=== PATIENT | female | born 1975 | race Caucasian/White ===

== ENCOUNTER 2018-05-22 04:00 | Outpatient (CLI) | payer OTHER, SELFPAY ==
[2018-05-22 07:46] LABS: Bilirubin Negative (Negative); Blood Moderate (Negative); Clarity Clear; Glucose Negative (Negative); Ketones Negative (Negative); Leukocyte Esterase Negative (Negative); Nitrite Negative (Negative); Specific Gravity >= 1.030 (1.005-1.025); Urobilinogen 0.2 EU/dL (Up TO 0.2); pH 5.5 (5-8)
[2018-05-22 08:22] LABS: Bacteria Many HPF (Negative); Crystals Negative HPF (Negative); Epithelial Cells Moderate HPF (Negative); Mucus Heavy (Negative); Other Cells Moderate Renal (Negative); WBC >50 HPF (0-5)
[2018-05-22 08:23] LABS: C & S Indicated? C&S Done As Ordered; Casts Negative LPF (Negative)
== END 2018-05-22 04:20 ==
PROVIDERS: PCP Family Medicine; Visit Provider Family Medicine
DX: R30.0 Dysuria (principal)
CPT/HCPCS: 87077; 81003; 81015; 87086; 87186

== ENCOUNTER 2018-07-09 18:34 | Outpatient (REF) | payer OTHER, SELFPAY ==
--- NOTE | 2018-07-09 19:00 | DI.MAMMO_ITS ---
SYMPTOMS/DIAGNOSIS: SCREENING, Z12.31 MAMMOGRAM: Mammograms were interpreted according to the usual protocol including computer analysis with CAD system, tomosynthesis and C view imaging. Comparison is made with exams from 2011 through 2017. The breasts are composed of heterogeneously dense fibroglandular tissue, breast density Category C. No suspicious masses or suspicious microcalcifications are seen. There has been no significant change. IMPRESSION: Category I, negative mammogram. Yearly screening mammography is recommended. [facility] ASSESSMENT OF FINDINGS: Negative. Category 1. Patient will receive a letter notifying them of these results. Bi-RADS category C. The breasts are heterogeneously dense, which may obscure small masses.
== END 2018-07-09 18:54 ==
LOC: DI 18:34
PROVIDERS: PCP Family Medicine; Visit Provider Family Medicine
DX: Z12.31 Encounter for screening mammogram for malignant neoplasm of breast (principal)
CPT/HCPCS: 77063; 77067

== ENCOUNTER 2019-08-06 09:03 | Outpatient (CLI) | payer OTHER, SELFPAY ==
--- NOTE | 2019-08-06 07:10 | DI.MAMMO_ITS ---
EXAM: MAMMO SCREENING CLINICAL HISTORY: screening.z12.39 TECHNIQUE: Mammograms were interpreted according to the usual protocol including computer analysis w [employer] CAD system, tomosynthesis and C-view imaging. COMPARISON: 2010 through 2018 FINDINGS: The breasts are composed of heterogeneously dense fibroglandular densities, Breast Density category C . No suspicious masses or suspicious microcalcifications are seen. No skin thickening or abnormal axillary lymph nodes are seen. There has been no significant change from prior exams. IMPRESSION: BIRADS Category 1, negative mammogram. Yearly screening mammography is recommended. BREAST DENSITY: The mammogram demonstrates the patient's breast tissue is dense. Dense breast tissue is very common and is not abnormal but dense breast tissue can make it harder to find cancer on a ma mmogram. Also, dense breast tissue may increase breast cancer risk. This information about the result of the mammogram report was provided to the patient to raise their awareness. Use this report when y ou speak with the patient about their risks for breast cancer, which includes their family history. A t that time, you may recommend additional screening tests (Ultrasound or MRI) as they might be useful based on their risk. A negative radiographic report should not delay biopsy if a dominant or clinically suspicious mass is present. Up to ten percent of cancers are not identified on mammography. A negative report may reinforce clinical impression. Adenosis and dense breasts may obscure an underlying neoplasm. False positive reports average 6 to 10%.
== END 2019-08-06 09:23 ==
PROVIDERS: PCP Family Medicine; Visit Provider Nurse Practitioner
DX: Z12.31 Encounter for screening mammogram for malignant neoplasm of breast (principal)
CPT/HCPCS: 77063; 77067

== ENCOUNTER 2020-04-26 08:43 | Outpatient (REF) | payer SELFPAY ==
[2020-04-26 08:58] VITALS: BP 121/66; PULSE 88; TEMP 36.7; O2SAT 100
--- NOTE | 2020-04-26 09:15 | ED.GENADUL_ITS ---
Discharge Plan Disposition Patient Disposition: HOME Condition: Stable Discharge Details Clinical Impression: Cough Primary Care Provider: Ketan Latif ED Provider: Yvon Alarcon Home Meds and New Rx's Prescriptions: Continued Centrum Complete 1 EACH tablet 1 tab-cap PO DAILY RF: 0 naproxen 500 MG tablet 500 mg PO Q12H PRN Qty: 60 RF: 2 Discharge Instructions Instructions: Acute Cough (ED) Additional Instructions: Covid test is pending. 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 Saor-wfi-[id number] medications as directed for symptomatic control. Please watch for new or worsening symptoms and return to the ER for any concerns. I do recommend reaching out to occupational health tomorrow regarding your testing and follow-up. Stand Alone Forms: POSITIVE COVID-19/TO BE TESTED Medical Decision Making 45-year-old female, no significant past medical history, presents with dry cough, postnasal drip, scratchy throat, nasal drainage for the past 2 days. She is scheduled to work [employer], per her hot dip plating supervisor, sent to the ER for Covid t esting. She appears well, nontoxic. Blood pressure 121/66. Pulse 88, she is afebrile and O2 sats are 100% on room air. Clinically this appears to be a URI, other viral etiology such as Covid is certainly on the differential. Extremely low suspicion for acute bronchitis, pneumonia, etc., no clear indication for chest x-ray at this time. Will obtain Covid testing and recommend that she follow the instructions given to her by her hot dip plating supervisor and contact occupational health tomorrow for the following of her symptoms and further instructions regarding a work. Medical Records Medical records reviewed: Yes I reviewed the patient's medical records. HPI General Mode of arrival: ambulatory . Date/Time Provider Initiated Documentation: 04/26/20 08:44 . Limitations to Documentation: no limitations . Information obtained by: patient . HPI Narrative: This is a 45-year-old female who denies significant past medical history. She works here at our facility and was sent to the ER by her hot dip plating supervisor for a Covid test. She reports a dry cough, nasal congestion, postnasal drip, scratchy throat for the past 2 days. Denies headache, fever, productive cough, chest pain, shortness of breath abdominal pain, nausea, vomiting, body aches or skin rash. She has been taking [id number] medication for her symptoms. 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 Related Data Home Medications Medication Instructions Recorded Confirmed Centrum Complete 1 tab-cap PO DAILY tab-cap 06/11/14 04/26/20 naproxen 500 mg PO Q12H PRN #60 tab-cap 10/14/15 04/26/20 Allergies Allergy/AdvReac Type Severity Reaction Status Date / Time amoxicillin Allergy Mild Itching Unverified 05/14/19 17:01 gluten AdvReac INTOLERANCE Unverified 05/14/19 17:01 General Stated Complaint: RespSymp ARIA: 4 Review of Systems Constitutional Constitutional: Denies fever(s) and Denies headache(s) Eyes Eyes: Denies eye discharge ENT Ears, Nose, Mouth, and Throat: Denies otalgia, Denies headache(s), Reports nasal congestion, Reports post nasal drip and Reports sore throat Cardiovascular Cardiovascular: Denies chest pain and Denies dyspnea Respiratory Respiratory: Reports cough and Denies dyspnea Gastrointestinal Gastrointestinal: Denies abdominal pain, Denies nausea and Denies vomiting Musculoskeletal Musculoskeletal: Denies myalgias Integumentary/Breasts Skin/Breast: Denies rash Neurologic Neurologic: Denies headache(s) [facility] Surgical History Dilation and curettage Kidney Stone Extraction Ligation of fallopian tube uterine ablation Family History Mother Osteoporosis Depression Neoplasm BREAST Spina bifida Father Essential hypertension Hyperlipidemia Neoplasm SKIN Sister No problems noted. Grandfather Alcohol abuse Myocardial infarction Grandfather Heart disease Grandmother Neoplasm BRAIN Stroke Grandmother Essential hypertension Stroke Maternal Uncle Stroke Son No problems noted. Social History Smoking/Tobacco Use Status: Never Smoking risk assessment performed?: Yes Drug use: Never Do you feel safe at home: Yes Do you feel safe in your relationship?: Yes Exam Const General: cooperative, healthy appearing, comfortable and no acute distress Orientation: alert and awake [facility] Head: normal to inspection, normocephalic and atraumatic Ears: external ears normal, TM's normal bilaterally and EAC's normal General nose exam: external nose normal, mucous membranes and turbinates abnormal boggy and nasal discharge clear Face and sinus: normal facial exam Mouth: moist mucous membranes Throat: posterior oropharynx normal Eyes General: appearance normal, both eyes and all related structures Conjunctivae: conjunctivae normal Sclera: sclerae normal Neck Neck: normal visual inspection, full ROM, no lymphadenopathy, no meningeal signs, trachea midline, supple and nontender Resp Effort & Inspection: normal respiratory effort and able to speak in complete sentences Auscultation: clear to auscultation bilaterally Cardio Rate: regular rate Rhythm: regular rhythm Skin General skin exam: no rashes or lesions noted Neuro General: patient alert, patient awake, moves all extremities and no focal motor deficits Sensory Exam: no sensory deficits noted Psych Appearance: grossly normal Mental Status: mental status grossly normal Course Vital Signs Vital signs: Vital Signs Temperature 36.7 C 04/26/20 08:58 Pulse 88 04/26/20 08:58 Blood Pressure 121/66 04/26/20 08:58 Pulse Oximetry 100 04/26/20 08:58 Temperature 36.7 C 04/26/20 08:58 Temperature Source Temporal Artery Scan 04/26/20 08:58 Pulse 88 04/26/20 08:58 Respiratory Effort Non-Labored 04/26/20 09:04 Respiratory Depth Normal 04/26/20 09:02 Blood Pressure 121/66 04/26/20 08:58 Blood Pressure Position Sitting 04/26/20 08:58 Pulse Oximetry 100 04/26/20 08:58 Oxygen Delivery Method Room Air 04/26/20 08:58 Oxygen Flow Rate 0 04/26/20 08:58 Pain Level 0 04/26/20 08:58
--- NOTE | 2020-04-27 06:07 | NUR.NOTE ---
Nursing Note: Micaela in lab called to state COVID test was negative. Patient called per Dr France and updated of result.
[2020-04-27 08:49] LABS: COVID-19 RT-PCR UVMMC Result Negative (Negative)
== END 2020-04-26 09:22 | disposition home or self-care (01) ==
LOC: ER 08:43
PROVIDERS: PCP Family Medicine; Visit Provider Physician Assistant
DX: Z11.59 Encounter for screening for other viral diseases (principal)
CPT/HCPCS: 99281; 99282; U0003; 99283

== ENCOUNTER 2020-08-19 00:42 | Outpatient (CLI) | payer OTHER, SELFPAY ==
--- NOTE | 2020-08-19 06:45 | DI.MAMMO_ITS ---
EXAM: MG MAMMO SCREENING CLINICAL HISTORY: screening,z12.39. TECHNIQUE: Bilateral full field digital CC and MLO mammographic images were obtained with 3D tomosyn thesis and utilizing computer aided detection (CAD). COMPARISON: Prior mammograms dating back to 2010, the most recent being August 2019. FINDINGS: The fibroglandular pattern is again noted be dense, this decreasing the sensitivity of the mammogram for finding in underlying lesions. There are multiple benign-appearing microcalcifications and microcalcification groups in both breasts again noted. There are no new obvious spiculated masses nor malignant-appearing microcalcification groups in eithe r breast. There is no significant architectural distortion nor skin thickening-retraction. IMPRESSION: Dense bilateral fibroglandular tissue. No obvious radiographic evidence of malignancy nor significan t change compared to prior studies listed above. Given the density of this patient's fibroglandular tissue might consider screening bilateral breast u ltrasound. BI-RADS Category 2 - Benign Findings Breast Density - Category C - Heterogeneously dense Breast density Category C or D implies that the patient has dense breast tissue. Dense breast tissue can make it harder to find cancer on a mammogram. Dense breast tissue is also associated with an incr eased risk of breast cancer. This information about the result of the mammogram report was provided to the patient to raise their awareness. Use this report when you speak with the patient about their risks for breast cancer, which includes their family history. At that time, you may recommend additional screening tests (Ultrasoun d or MRI) as these tests may add significant information. A negative radiographic report should not delay biopsy if a dominant or clinically suspicious mass is present. Up to ten percent of cancers are not identified on mammography. A negative report may reinforce clinical impression. Adenosis and dense breasts may obscure an underlying neoplasm. False positive reports average 6 to 10%. Patient will receive a letter notifying them of these results.
== END 2020-08-19 01:02 ==
PROVIDERS: PCP Family Medicine; Visit Provider Family Medicine
DX: Z12.31 Encounter for screening mammogram for malignant neoplasm of breast (principal); R92.0 Mammographic microcalcification found on diagnostic imaging of breast
CPT/HCPCS: 77063; 77067

== ENCOUNTER 2021-09-16 02:14 | Outpatient (CLI) | payer OTHER, SELFPAY ==
[2021-09-16 09:18] LABS: Calculated LDL 133 mg/dL (<100); Cholesterol 216 mg/dL (<200); Glucose 108 mg/dL (74-106); HDL Cholesterol 74 mg/dL (40-60); Triglyceride 46 mg/dL (<150)
[2021-09-17 12:36] LABS: Lab Add On Test DONE
[2021-09-17 13:01] LABS: TSH 1.53 uIU/mL (0.36-3.74)
== END 2021-09-16 02:15 | disposition home or self-care (01) ==
LOC: LBO 02:14
PROVIDERS: PCP Family Medicine; Visit Provider Family Medicine
DX: E78.5 Hyperlipidemia, unspecified (principal); R73.9 Hyperglycemia, unspecified; R22.1 Localized swelling, mass and lump, neck
CPT/HCPCS: 36415; 80061; 82947; 84443

== ENCOUNTER → 2021-11-09 00:29 | Outpatient (CLI) | payer OTHER, SELFPAY ==
--- NOTE | 2021-11-09 07:33 | DI.MAMMO_ITS ---
Exam(s) MAMMO SCREENING EXAM: MAMMO SCREENING CLINICAL HISTORY: screening,z12.39 TECHNIQUE: Mammograms were interpreted according to the usual protocol including computer analysis w [employer] CAD system, tomosynthesis and C-view imaging. COMPARISON: 2014 through 2020 FINDINGS: The breasts are composed of heterogeneously dense fibroglandular densities, Breast Density category C . No suspicious masses or suspicious microcalcifications are seen. No skin thickening or abnormal axillary lymph nodes are seen. There has been no significant change from prior exams. IMPRESSION: BI-RADS Category 1, Negative mammogram. Yearly screening mammography is recommended. Breast Density Category C, heterogeneously Dense. The mammogram demonstrates the patient's breast tissue is dense. Dense breast tissue is very common a nd is not abnormal but dense breast tissue can make it harder to find cancer on a mammogram. Also, de nse breast tissue may increase breast cancer risk. This information about the result of the mammogram report was provided to the patient to raise their awareness. Use this report when you speak with the patient about their risks for breast cancer, which includes their family history. At that time, you may recommend additional screening tests (Ultrasound or MRI) as they might be useful based on their r isk. A negative radiographic report should not delay biopsy if a dominant or clinically suspicious mass is present. Up to ten percent of cancers are not identified on mammography. A negative report may reinforce clinical impression. Adenosis and dense breasts may obscure an underlying neoplasm. False positive reports average 6 to 10%.
== END ==
PROVIDERS: PCP Family Medicine; Visit Provider Family Medicine
DX: Z12.31 Encounter for screening mammogram for malignant neoplasm of breast (principal)
CPT/HCPCS: 77063; 77067

== ENCOUNTER 2022-10-03 13:37 | Outpatient (CLI) | payer OTHER, SELFPAY ==
--- NOTE | 2022-10-03 08:00 | DI.CT_ITS ---
Exam(s) CT HEAD WO EXAM: CT HEAD WO CLINICAL HISTORY: rt sided headache intermittently;r51.9,family h/o glioblastoma. TECHNIQUE: Imaging Protocol: Axial computed tomography images with coronal and sagittal reformatted images were created and reviewed COMPARISON: No exams were available for comparison FINDINGS: There are no skull fractures. There is no fluid in the visualized paranasal sinuses. There is no evidence of intracranial hemorrhage, mass effect, or shift of midline structures. There are no extra-axial fluid collections. The ventricles are not enlarged or shifted and there is no blo od within the ventricular system nor within the basal cisterns. IMPRESSION: No acute intracranial findings on this noninfused CT scan of the brain. RADIATION DOSE DELIVERED: 771.66mGy.cm Total DLP DATA REPOSITORY: All CT scans at this facility are submitted to the National Radiology Data Registry (NRDR) Dose Index Registry (DIR) with the [employer] (ACR). RADIATION OPTIMIZATION: All CT scans at this facility use at least one of these dose optimization te chniques: automated exposure control; mA and/or kV adjustment per patient size (includes targeted exa ms where dose is matched to clinical indication); or iterative reconstruction.
--- NOTE | 2022-10-03 08:00 | DI.RAD_ITS ---
Exam(s) XR KNEE RT 3V AP,LAT,LACY EXAM: XR KNEE RT 3V AP,LAT,LACY CLINICAL HISTORY: knee pain right,m25.561. TECHNIQUE: 2D digital imaging was performed. COMPARISON: No exams were available for comparison FINDINGS: 3 views No evidence of acute fracture or obvious joint effusion. No obvious degenerative changes. However, on the lateral view there is mild indentation of the anterior weight-bearing articular surface of the lateral femoral condyle. This finding is sometimes associated posttraumatic internal derangement bass ch as associated with pivot shift bone contusion. However, in this case there does not appear to be an obvious joint. IMPRESSION: Findings as above. If clinically indicated follow-up MRI can be performed for added sensitivity and specificity. DATA REPOSITORY: RADIATION DOSE DELIVERED:
== END 2022-10-03 13:57 ==
LOC: DI 13:38
PROVIDERS: PCP Family Medicine; Visit Provider Family Medicine
DX: M25.561 Pain in right knee (principal); R51.9 Headache, unspecified
CPT/HCPCS: 73562; 70450

== ENCOUNTER 2022-11-15 00:39 | Outpatient (CLI) | payer OTHER, SELFPAY ==
--- NOTE | 2022-11-15 07:31 | DI.MAMMO_ITS ---
Exam(s) MAMMO SCREENING EXAM: MAMMO SCREENING CLINICAL HISTORY: screening,z12.39. TECHNIQUE: Bilateral full field digital CC and MLO mammographic images were obtained with 3D tomosyn thesis and utilizing computer aided detection (CAD). COMPARISON: Prior mammograms were reviewed. FINDINGS: There has been no significant change in the appearance and distribution of the fibroglandular tissue which is again noted be moderately dense.. There are no new spiculated masses nor malignant appearing microcalcification groups. Numerous benign-appearing microcalcifications are again noted both breasts. There is no significant architectural distortion nor skin thickening-retraction. IMPRESSION: No radiographic evidence of malignancy. BI-RADS Category 1 - Negative Breast Density - Category C - Heterogeneously dense Breast density Category C or D implies that the patient has dense breast tissue. Dense breast tissue can make it harder to find cancer on a mammogram. Dense breast tissue is also associated with an incr eased risk of breast cancer. This information about the result of the mammogram report was provided to the patient to raise their awareness. Use this report when you speak with the patient about their risks for breast cancer, which includes their family history. At that time, you may recommend additional screening tests (Ultrasoun d or MRI) as these tests may add significant information. A negative radiographic report should not delay biopsy if a dominant or clinically suspicious mass is present. Up to ten percent of cancers are not identified on mammography. A negative report may reinforce clinical impression. Adenosis and dense breasts may obscure an underlying neoplasm. False positive reports average 6 to 10%. Patient will receive a letter notifying them of these results.
== END 2022-11-15 00:59 ==
LOC: DI 00:40
PROVIDERS: PCP Family Medicine; Visit Provider Family Medicine
DX: Z12.31 Encounter for screening mammogram for malignant neoplasm of breast (principal)
CPT/HCPCS: 77063; 77067

== ENCOUNTER 2022-11-24 02:19 | Outpatient (CLI) | payer OTHER, SELFPAY ==
[2022-11-25 19:37] LABS: Food Panel 0.31 kU/L (<0.70)
== END 2022-11-24 02:20 | disposition home or self-care (01) ==
PROVIDERS: PCP Family Medicine; Visit Provider Family Medicine
DX: R51.9 Headache, unspecified (principal); M25.561 Pain in right knee
CPT/HCPCS: 36415; 86003

== ENCOUNTER 2023-04-05 11:30 | Outpatient (CLI) | payer OTHER, SELFPAY ==
--- NOTE | 2023-04-05 09:15 | DI.RAD_ITS ---
Exam(s) XR SHOULDER LT COMPLETE 2+V EXAM: XR SHOULDER LT COMPLETE 2+V CLINICAL HISTORY: LEFT SHOULDER PAIN. TECHNIQUE: 2D digital imaging was performed. Three views. COMPARISON: No exams were available for comparison FINDINGS: BONES: No acute fracture is present. No bony destructive lesion is seen. JOINTS: No dislocation present. AC joint shows no significant spurring. The glenohumeral joint is m aintained. SOFT TISSUE: Normal. IMPRESSION: Unremarkable radiographs of the left shoulder. DATA REPOSITORY: RADIATION DOSE DELIVERED:
== END 2023-04-05 11:31 | disposition home or self-care (01) ==
LOC: DIORS 11:30
PROVIDERS: PCP Family Medicine; Visit Provider Student in an Organized Health Care Education/Training Program
DX: M25.512 Pain in left shoulder (principal)
CPT/HCPCS: 73030

== ENCOUNTER → 2023-04-28 00:08 | Outpatient (CLI) | payer OTHER, SELFPAY ==
--- NOTE | 2023-04-28 06:45 | DI.MRI_ITS ---
Exam(s) MR UPPER JOINT LT WO EXAM: MR UPPER JOINT LT WO CLINICAL HISTORY: PAIN, ? RTC TEAR,m75.102. TECHNIQUE: Multiplanar multisequence MRI was performed. COMPARISON: CR XR SHOULDER LT COMPLETE 2+V from 04/05/2023 FINDINGS: BONES: There is no fracture or contusion pattern. There is subchondral cysts seen in the lateral aspe ct of the humeral head. JOINTS: The acromioclavicular joint is normal. The glenohumeral joint is normal. TENDONS: Supraspinatus: There is tendinosis of the supraspinatus tendon without evidence of a full-thickness t ear. Infraspinatus: Unremarkable. Subscapularis: Unremarkable. Teres [place]: Unremarkable. Biceps and [place]: Unremarkable. MUSCLES: Unremarkable. GLENOID LABRUM: Unremarkable on this noncontrast examination. SOFT TISSUES: Unremarkable. LIGAMENTS: Unremarkable. OTHER: There is a tiny amount of fluid in the subacromial bursa. IMPRESSION: 1. Small amount of fluid seen in the subacromial bursa. 2. Tendinosis of the supraspinatus tendon without evidence of a rotator cuff tear. 3. Unremarkable glenoid labrum on this noncontrast examination. DATA REPOSITORY:
== END ==
PROVIDERS: PCP Family Medicine; Visit Provider Student in an Organized Health Care Education/Training Program
DX: M25.512 Pain in left shoulder (principal); M25.412 Effusion, left shoulder
CPT/HCPCS: 73221

== ENCOUNTER 2023-10-26 05:00 | Outpatient (CLI) | payer OTHER, SELFPAY ==
[2023-10-26 08:18] LABS: HCT 39.1 % (36.0-46.0); HGB 13.1 g/dL (11.2-15.7); MCH 29.9 pg (27.0-33.0); MCHC 33.5 % (32.0-36.0); MCV 89 fL (80-95); MPV 9.3 fL (8.0-11.0); Platelet Count 288 10^3/uL (130-400); RBC 4.38 10^6/uL (3.93-5.22); RDW 12.5 % (11.7-14.6); RDW-SD 41.3 fL; WBC 4.13 10^3/uL (4.4-10.8)
[2023-10-26 09:25] LABS: ALT 64 U/L (14-59); AST 28 U/L (15-37); Albumin 3.9 g/dL (3.4-5.0); Alkaline Phosphatase 76 U/L (46-116); Anion Gap 4.3 mmol/L (3-11); BUN 17 mg/dL (7-18); Bilirubin, Total 0.7 mg/dL (0.2-1.0); CO2 31.7 mmol/L (21.0-32.0); CREATININE 0.9 mg/dL (0.55-1.02); Calcium 9.3 mg/dL (8.5-10.1); Calculated LDL 134 mg/dL (<100); Chloride 106 mmol/L (98-107); Cholesterol 210 mg/dL (<200); Estimated GFR 78.86 (mL/min/1.73m2); Glucose 100 mg/dL (74-106); HDL Cholesterol 63 mg/dL (40-60); Potassium 3.9 mmol/L (3.5-5.1); Sodium 142 mmol/L (136-145); Total Protein 7.1 g/dL (6.4-8.2); Triglyceride 66 mg/dL (<150)
== END 2023-10-26 05:01 | disposition home or self-care (01) ==
PROVIDERS: PCP Family Medicine; Visit Provider Family Medicine
DX: R53.83 Other fatigue (principal); E78.5 Hyperlipidemia, unspecified; R10.9 Unspecified abdominal pain
CPT/HCPCS: 36415; 80053; 80061; 85027

== ENCOUNTER → 2023-11-28 11:08 | Outpatient (CLI) | payer OTHER, SELFPAY ==
--- NOTE | 2023-11-28 08:30 | DI.MAMMO_ITS ---
Exam(s) MAMMO SCREENING EXAM: MAMMO SCREENING CLINICAL HISTORY: screening,z12.39 TECHNIQUE: Mammograms were interpreted according to the usual protocol including computer analysis w [employer] CAD system, tomosynthesis and C-view imaging. COMPARISON: 2014 through 2022 FINDINGS: The breasts are composed of heterogeneously dense fibroglandular densities, Breast Density category C . No suspicious masses or suspicious microcalcifications are seen. No skin thickening or abnormal axillary lymph nodes are seen. There has been no significant change from prior exams. IMPRESSION: BI-RADS Category 1, Negative mammogram. Yearly screening mammography is recommended. Breast Density Category C, heterogeneously Dense. The mammogram demonstrates the patient's breast tissue is dense. Dense breast tissue is very common a nd is not abnormal but dense breast tissue can make it harder to find cancer on a mammogram. Also, de nse breast tissue may increase breast cancer risk. This information about the result of the mammogram report was provided to the patient to raise their awareness. Use this report when you speak with the patient about their risks for breast cancer, which includes their family history. At that time, you may recommend additional screening tests (Ultrasound or MRI) as they might be useful based on their r isk. A negative radiographic report should not delay biopsy if a dominant or clinically suspicious mass is present. Up to ten percent of cancers are not identified on mammography. A negative report may reinforce clinical impression. Adenosis and dense breasts may obscure an underlying neoplasm. False positive reports average 6 to 10%.
== END ==
PROVIDERS: PCP Family Medicine; Visit Provider Family Medicine
DX: Z12.39 Encounter for other screening for malignant neoplasm of breast (principal)
CPT/HCPCS: 77063; 77067

== ENCOUNTER 2024-07-04 10:16 | Outpatient (REF) | payer OTHER, SELFPAY ==
--- NOTE | 2024-07-04 10:15 | PAPFT_PTH ---
PATIENT: Elissa Keenan LOC: [facility] U#:[id number] AGE/SX: 49/F ROOM: RE07/04/[address]: Lida Hendrickson DO : 1975 BED: DIS: 07/04/2024 SPEC #: [id number] RECD: 07/04/24 12:44 STATUS: BENJames REQ #: [id number] REID: 07/04/24 10:[address]: Lida Hendrickson DEPT: [facility] Cytology RECD BY: Regina Braun ENTERED: 07/04/24 12:44 SP TYPE: PAPFT OTHR DR: Ketan Latif MD Tissues: 1 - CX/ENDOCX FOR PAP SMEARS Procedures: PAP THIN PREP/UVM Screening HPV DNA PROBE Comments: [id number] (HPV 16 & 18/45)
== END 2024-07-04 10:17 | disposition home or self-care (01) ==
LOC: LBN 10:16
PROVIDERS: PCP Family Medicine; Visit Provider Obstetrics & Gynecology
DX: Z11.51 Encounter for screening for human papillomavirus (HPV) (principal); Z01.419 Encounter for gynecological examination (general) (routine) without abnormal findings
CPT/HCPCS: 88142; 87624

== ENCOUNTER 2024-12-03 01:33 | Outpatient (CLI) | payer OTHER, SELFPAY ==
--- NOTE | 2024-12-03 05:45 | DI.MAMMO_ITS ---
Exam(s) MAMMO SCREENING EXAM: MAMMO SCREENING CLINICAL HISTORY: screening,z12.39 TECHNIQUE: Mammograms were interpreted according to the usual protocol including computer analysis with CAD system, tomosynthesis and C-view imaging. COMPARISON: 2014 through 2023 FINDINGS: The breasts are composed of heterogeneously dense fibroglandular densities, Breast Density category C. No suspicious masses or suspicious microcalcifications are seen. No skin thickening or abnormal axillary lymph nodes are seen. There has been no significant change from prior exams. IMPRESSION: BI-RADS Category 1, Negative mammogram. Yearly screening mammography is recommended. Breast Density: Category C - The breasts are heterogeneously dense, which may obscure small masses. Breast density Category C or D implies that the patient has dense breast tissue. Dense breast tissue can make it harder to find cancer on a mammogram. Dense breast tissue is also associated with an increased risk of breast cancer. This information about the result of the mammogram report was provided to the patient to raise their awareness. Use this report when you speak with the patient about their risks for breast cancer, which includes their family history. At that time, you may recommend additional screening tests (Ultrasound or MRI) as these tests may add significant information. A negative radiographic report should not delay biopsy if a dominant or clinically suspicious mass is present. Up to ten percent of cancers are not identified on mammography. A negative report may reinforce clinical impression. Adenosis and dense breasts may obscure an underlying neoplasm. False positive reports average 6 to 10%.
== END 2024-12-03 01:53 ==
PROVIDERS: PCP Family Medicine; Visit Provider Obstetrics & Gynecology
DX: Z12.31 Encounter for screening mammogram for malignant neoplasm of breast (principal); R92.333 Mammographic heterogeneous density, bilateral breasts
CPT/HCPCS: 77063; 77067

== ENCOUNTER 2024-12-31 02:36 | Outpatient (CLI) | payer OTHER, SELFPAY ==
[2024-12-31 02:57] LABS: ESR 7 mm/hr (0-20)
[2024-12-31 03:08] LABS: C-Reactive Protein < 0.50 mg/dL (<or=0.5)
== END 2024-12-31 02:37 | disposition home or self-care (01) ==
LOC: LBO 02:37
PROVIDERS: PCP Family Medicine; Visit Provider Family Medicine
DX: M25.50 Pain in unspecified joint (principal); M19.90 Unspecified osteoarthritis, unspecified site; R41.89 Other symptoms and signs involving cognitive functions and awareness
CPT/HCPCS: 85652; 86038; 86140; 86431

== ENCOUNTER 2025-01-03 08:59 | Outpatient (CLI) | payer OTHER, SELFPAY ==
[2025-01-06 12:46] LABS: Sm (Smith) Ab, IgG 11.7 CU (<20.0)
== END 2025-01-03 09:00 | disposition home or self-care (01) ==
LOC: LBO 09:00
PROVIDERS: PCP Family Medicine; Visit Provider Family Medicine
DX: R76.8 Other specified abnormal immunological findings in serum (principal)
CPT/HCPCS: 36415; 86215; 86235

== ENCOUNTER 2025-01-24 14:14 | Outpatient (CLI) | payer OTHER, SELFPAY ==
[2025-01-24 14:06] LABS: Calculated LDL 143 mg/dL (<100); Cholesterol 239 mg/dL (<200); HDL Cholesterol 70 mg/dL (>or=50); Triglyceride 131 mg/dL (<150)
[2025-01-26 23:01] LABS: B. miyamotoi PCR Negative (Negative); Babesia divergens/MO-1 Negative (Negative); Ehrlichia muris eauclairensis Negative (Negative)
[2025-01-27 10:55] LABS: Lyme Ab w Rflx to Lyme Confirm Negative (Negative)
== END 2025-01-24 14:15 | disposition home or self-care (01) ==
LOC: LBO 14:14
PROVIDERS: PCP Family Medicine; Visit Provider Family Medicine
DX: Z13.220 Encounter for screening for lipoid disorders (principal)
CPT/HCPCS: 36415; 80061; 87798; 86618

== ENCOUNTER 2025-04-15 10:41 | Outpatient (CLI) | payer OTHER, SELFPAY ==
[2025-03-17 04:44] LABS: TSH (W/Ref FT4) 2.76 uIU/mL (0.36-3.74)
[2025-03-18 08:34] LABS: Antithrombin 3, Funct. 101 % (85-125)
[2025-03-19 10:39] LABS: Protein C, Functional 141 % (71-199); Protein S, Functional 110 % (64-147)
[2025-03-21 09:11] LABS: Factor V Leiden(R506Q) Mut Negative (Negative)
== END 2025-04-15 10:42 | disposition home or self-care (01) ==
LOC: LBO 10:41
PROVIDERS: PCP Family Medicine; Visit Provider Obstetrics & Gynecology
DX: Z82.49 Family history of ischemic heart disease and other diseases of the circulatory system (principal)
CPT/HCPCS: 81241; 85300; 85306; 84443; 85303